=== PATIENT | female | born 1985 | race Caucasian/White ===

== ENCOUNTER 2016-08-29 08:52 | Day surgery (SDC) | payer BC ==
[~2016-08-29] VITALS: Ht 139.7 cm; Wt 45.0 kg
[~2016-08-29 08:52] MED LIST: ALLEGRA-D 241 TABLET PO
[2016-08-29 09:09] VITALS: BP 111/72
[2016-08-29] MEDS ORDERED: ENDOCET 5-3251 EACH PO (12:59)
[2016-08-29 14:31] VITALS: BP 113/68
[2016-08-29 15:50] VITALS: BP 103/60
== END 2016-08-29 15:55 | disposition home or self-care (01) ==
LOC: SDC 08:52
PROC: 0UT74ZZ Resection of Bilateral Fallopian Tubes, Percutaneous Endoscopic Approach (ICD-10-PCS; principal; 2016-08-29)
PROC: 0TJB8ZZ Inspection of Bladder, Via Natural or Artificial Opening Endoscopic (ICD-10-PCS; principal; 2016-08-29)
PROC: 0UTC4ZZ Resection of Cervix, Percutaneous Endoscopic Approach (ICD-10-PCS; principal; 2016-08-29)
PROC: 0TN74ZZ Release Left Ureter, Percutaneous Endoscopic Approach (ICD-10-PCS; principal; 2016-08-29)
PROC: 0UT94ZZ Resection of Uterus, Percutaneous Endoscopic Approach (ICD-10-PCS; principal; 2016-08-29)
PROC: 0DBW4ZX Excision of Peritoneum, Percutaneous Endoscopic Approach, Diagnostic (ICD-10-PCS; principal; 2016-08-29)
DX: G89.29 Other chronic pain (principal); R10.2 Pelvic and perineal pain; N80.0 Endometriosis of uterus; N80.3 Endometriosis of pelvic peritoneum; N72 Inflammatory disease of cervix uteri; N94.6 Dysmenorrhea, unspecified; N13.5 Crossing vessel and stricture of ureter without hydronephrosis; N73.6 Female pelvic peritoneal adhesions (postinfective); Z80.42 Family history of malignant neoplasm of prostate; F17.210 Nicotine dependence, cigarettes, uncomplicated
CPT/HCPCS: 88307; J0131; J0330; J0690; J1170; J1885; J2250; J2405; J3010